=== PATIENT | female | born 2000 | race African-American/Black ===

== ENCOUNTER 2022-11-09 23:25 | Emergency (ER) | payer MEDICAID ==
[~2022-11-09] VITALS: Ht 162.6 cm; Wt 59.3 kg
[2022-11-09 23:31] VITALS: BP 116/71; PULSE 90; RESP 16; O2SAT 100
[2022-11-10] MEDS ORDERED: ACETAMINOPHEN 325MG TABLET PO ONE (00:15)
[2022-11-10 00:21] VITALS: TEMP 98.2
== END 2022-11-10 10:20 | disposition home or self-care (01) ==
LOC: ER 11-10 07:04
DX: S93.601A Unspecified sprain of right foot, initial encounter (principal); J45.909 Unspecified asthma, uncomplicated; W01.0XXA Fall on same level from slipping, tripping and stumbling without subsequent striking against object, initial encounter; Y93.89 Activity, other specified; Y92.89 Other specified places as the place of occurrence of the external cause; Y99.8 Other external cause status
CPT/HCPCS: 73630; 99283

== ENCOUNTER 2023-03-18 08:57 | Emergency (ER) | payer MEDICAID ==
[~2023-03-18] VITALS: Ht 162.6 cm; Wt 59.0 kg
[2023-03-18 09:23] VITALS: BP 119/82; PULSE 75; RESP 16; TEMP 98; O2SAT 100
[2023-03-18] MEDS ORDERED: BACITRACIN ZINC OINT UDPKT TOP ONE (10:45)
[2023-03-18] MEDS ORDERED: AMOX1TAB16 MT (10:56)
== END 2023-03-18 11:07 | disposition home or self-care (01) ==
LOC: ER 08:57
DX: S21.151A Open bite of right front wall of thorax without penetration into thoracic cavity, initial encounter (principal); S27.9XXA Injury of unspecified intrathoracic organ, initial encounter; W50.3XXA Accidental bite by another person, initial encounter; Y93.89 Activity, other specified; Y92.89 Other specified places as the place of occurrence of the external cause; Y99.8 Other external cause status
CPT/HCPCS: 99283

== ENCOUNTER 2023-09-27 08:49 | Emergency (ER) | payer OTHER, MEDICAID ==
[~2023-09-27] VITALS: Ht 162.6 cm; Wt 60.0 kg
[~2023-09-27 08:49] MED LIST: AMOX1TAB16 MT
[2023-09-27 08:56] VITALS: O2SAT 100
[2023-09-27] MEDS ORDERED: CYCL25PO15 MT (09:19)
[2023-09-27] MEDS ORDERED: IBUP-2029 MT (09:19)
[2023-09-27 09:49] VITALS: BP 120/78; PULSE 81; RESP 16; TEMP 98.2
== END 2023-09-27 09:52 | disposition home or self-care (01) ==
LOC: ER 08:49
DX: S33.5XXA Sprain of ligaments of lumbar spine, initial encounter (principal); V89.2XXA Person injured in unspecified motor-vehicle accident, traffic, initial encounter; Y93.89 Activity, other specified; Y92.89 Other specified places as the place of occurrence of the external cause; Y99.8 Other external cause status
CPT/HCPCS: 99283

== ENCOUNTER 2024-03-03 18:47 | Emergency (ER) | payer MEDICAID, OTHER ==
[~2024-03-03] VITALS: Ht 162.6 cm; Wt 64.4 kg
[~2024-03-03 18:47] MED LIST changes: +CYCL25PO15 MT; +IBUP-2029 MT
[2024-03-03 18:49] VITALS: O2SAT 98
[2024-03-03 18:52] VITALS: BP 148/90; PULSE 88; RESP 18; TEMP 98.8; O2SAT 100
[2024-03-03] MEDS ORDERED: ACETAMINOPHEN 325MG TABLET PO ONE (21:00)
== END 2024-03-03 23:00 | disposition left against medical advice (07) ==
LOC: ER 18:47
DX: S09.90XA Unspecified injury of head, initial encounter (principal); R68.84 Jaw pain; J45.909 Unspecified asthma, uncomplicated; Z79.899 Other long term (current) drug therapy; W22.8XXA Striking against or struck by other objects, initial encounter; Y93.89 Activity, other specified; Y92.89 Other specified places as the place of occurrence of the external cause; Y99.8 Other external cause status
CPT/HCPCS: 99281